=== PATIENT | female | born 1975 | race Caucasian/White ===

== ENCOUNTER → 2025-07-17 | Outpatient (CLI) | payer BC, SELFPAY ==
--- NOTE | 2025-07-17 | XR_ITS ---
Examination: Shoulder, left, 3 views Technique: Shoulder AP internal rotation, AP external rotation, Y view shoulder, 3 views Exam date and time : July 17, 2025, 1217 hours Dictation: Left shoulder pain beginning 2 weeks ago. FINDINGS: Mild narrowing glenohumeral joint No shoulder fracture or dislocation IMPRESSION: Mild narrowing glenohumeral joint
--- NOTE | 2025-07-17 | XR_ITS ---
EXAMINATION: Cervical spine, 5 views Technique: Cervical spine AP, AP odontoid, lateral, bilateral obliques, 5 views Exam date and time: July 17, 2025, 1217 hours INDICATIONS: Neck pain beginning 2 weeks ago. FINDINGS: Straightening normal cervical lordosis. No cervical fracture. Intact odontoid. Moderate to advanced degenerative disc disease C4-C5, C5-C6, C6-C7 with mild to moderate bilateral neuroforaminal stenosis IMPRESSION: Moderate to advanced degenerative disc disease C4-C5, C5-C6, C6-C7
== END | disposition home or self-care (01) ==
PROVIDERS: PCP Nurse Practitioner Family; Referring Provider Nurse Practitioner Family; Visit Provider Nurse Practitioner Family
DX: M50.321 Other cervical disc degeneration at C4-C5 level (principal); M25.812 Other specified joint disorders, left shoulder
CPT/HCPCS: 72050; 73030